=== PATIENT | female | born 1990 | race Caucasian/White ===

== ENCOUNTER 2023-08-08 17:02 | Emergency (ER) | payer OTHER, SELFPAY ==
[2023-08-08 17:06] VITALS: BP 153/112; BMI 29.5
--- NOTE | 2023-08-08 18:50 | ED.GENMED ---
History of Present Illness
General
Chief Complaint: Ear Problem
Source: patient and family
Exam Limitations: none
Time Seen by Provider: 08/08/23 18:19
Nursing documentation reviewed up to this point in time: agreed with
History of Present Illness
History of Present Illness:
32-year-old female presenting to the emergency department today with concerns of room spinning dizziness intermittently over the past few days but recently [place] and probably on the way home had nausea vomiting diarrhea for roughly 24 hours was
assessed at the [facility] fluids and felt better. Since then she has had some mild upper respiratory symptoms as well as right-sided ear she noticed room spinning dizziness yesterday as well as today intermittently with specific movements and
positioning. Seems to improve when sitting still. Has felt very fatigued. She had a negative COVID test 4 days ago. Denies any chest pain shortness of breath. Denies any numbness weakness or any additional strokelike symptoms
Review of Systems
Review of Systems
Allergies reviewed?: Yes
All Other Systems: ROS reviewed and negative except as documented in HPI and ROS
Phy Exam
Physical Exam
Physical Exam:
GENERAL: Alert , in no apparent distress
EYE: With extraocular movements patient had horizontal nystagmus that was fatigable. Pupils equal and reactive
NECK: Supple, no significant adenopathy.
ENT: o/p clr, mmm.
CARDIAC: Regular rate and rhythm .
LUNGS: Clear breath sounds bilaterally, no acute respiratory distress, no wheezes/rales/rhonchi
ABDOMEN: Soft, without focal tenderness, no r/g, no cvat
NEUROLOGICAL: Alert and oriented, no focal neuro deficits
SKIN: Warm and dry, skin intact.
MUSCULOSKELETAL: No edema, well perfused.
PSYCH: Normal and appropriate interaction.
Course
Orders/Labs/Results
Orders:
Orders
08/08/23 18:34
Urinalysis Reflex To Culture Urgent
Dexamethasone Sod Phosphate [Decadron] 10 mg IV NOW STA
Meclizine [Antivert] 25 mg PO NOW STA
Ondansetron Injectable [Zofran] 4 mg IV NOW STA
08/08/23 18:35
Electrocardiogram (*1) Stat
Reason for Study: Abdominal Pain
EKG- Treatment ONCE
0.9% Sodium Chloride 1000 ml [Nss] 1,000 ml IV BOLUS
08/08/23 19:20
COVID-19 Antigen Urgent
Source: Nasal Swab
Complete Blood Count/With Diff Urgent
Comprehensive Metabolic Panel Urgent
Abnormal Lab Results
08/08/23
19:20
Abs Immat Gran (auto) 0.1 H 10^3/uL
(0-0.05)
Absolute Neuts (auto) 6.7 H 10^3/uL
(1.4-6.5)
Absolute Monos (auto) 0.7 H 10^3/uL
(0.1-0.6)
Immature Gran % 0.6 H %
(0-0.5)
AST 63 H U/L
(14-36)
ALT 148 H U/L
(0-35)
08/08/23 19:20
08/08/23 19:20
Vital Signs
Initial and Last Documented VS:
Initial Vital Signs
Temp Pulse Resp BP Pulse Ox
98.3 F 99 16 153/112 98
08/08/23 17:06 08/08/23 17:06 08/08/23 17:06 08/08/23 17:06 08/08/23 17:06
Last Documented Vital Signs
Temp Pulse Resp BP Pulse Ox
98.3 F 89 16 122/93 97
08/08/23 17:06 08/08/23 19:22 08/08/23 17:06 08/08/23 19:22 08/08/23 19:22
MDM/Problems Addressed
MDM/Problems Addressed:
32-year-old female presenting to the emergency department today with concerns of room spinning dizziness generalized weakness fatigue over the past 4 days or so. Recently came back from a vacation in [facility]. Upon arrival here heart rate mildly
elevated in the high 90s blood pressure elevated as well patient in no obvious distress but does have horizontal nystagmus with extraocular movements and head movement. This is fatigable quickly. Has been able to ambulate. Unlikely be central
cause considering fatigable. No risk factors for CVA. Patient was given meclizine Zofran and steroid with improving symptoms. She was able to stand up and walk. Generally well here does not appear to be consistent with any life-threatening
etiology. Plan for outpatient management and close follow-up with ENT as needed. Additionally she did have elevated AST and ALT. She was notified of this and will follow-up as an outpatient for repeat of labs.
*Critical Care Note
Total Time (30-74mins, 75-104mins- exclusive of procedures): Not Applicable
ED Attending Note
-
Portions of this chart may have been created with voice recognition software.� Occasional wrong word or��sound alike� substitutions may have occurred due to the inherent limitations of voice recognition software.
Discharge Plan
Departure
Patient Disposition: Home (Routine Discharge)
Date of Disposition: 08/08/23
Time of Disposition: 20:23
Patient with high blood pressure during this ER visit?: No
Condition: Good
Covid-19: Not Applicable
Discharge Problem:
Vertigo, Acute viral syndrome, Transaminitis
Instructions: Vertigo ED
Prescriptions:
New
prednisone 20 mg tablet
40 mg PO DAILY 3 Days Qty: 6 0RF
meclizine 25 mg tablet
25 mg PO Q8 PRN (Reason: dizziness) Qty: 10 0RF
ondansetron 4 mg tablet,disintegrating
4 mg PO Q8H PRN (Reason: nausea and vomiting) Qty: 10 0RF
Referrals:
Luis Fernando Dwyer MD [Active] - Follow up in 5-7 days
Goran,Ligia J., MD [Active] - Follow up in 5-7 days
Stand Alone Forms: Return to Work
Activity Restrictions/Additional Instructions:
You came to the emergency department today with concerns of multiple symptoms including vertigo nausea. Here your reassuring assessment you did have slight elevation of your liver function test which will need to be repeated. Otherwise you do have
symptoms consistent with vertigo. Please take meclizine 1 tab every 8 hours as needed for symptoms. Can also take Zofran to help with nausea. Please also take steroids to help with inflammation. Return to the emergency department for any
worsening, new or concerning symptoms. Please otherwise follow-up closely with ENT for further assessment.
Interventions
Interventions:
*Risk Screen - Suicide Last Done: 08/08/23 17:06
*General Assessment Last Done: 08/08/23 19:23
*Neglect/Abuse Screening Last Done: 08/08/23 17:06
*ED COVID-19 Vaccine History Last Done: 08/08/23 19:23
Discharge Date and Time
Print Language: NIGERIEN
[2023-08-08] MEDS: NSS 1000 IV (19:11)
[2023-08-08] MEDS: ZOFRAN 4 MG IV (19:13)
[2023-08-08] MEDS: ANTIVERT 25 MG PO (19:14)
[2023-08-08] MEDS: DECADRON 10 MG IV (19:14)
[2023-08-08 19:22] VITALS: BP 122/93
[2023-08-08 19:33] LABS: % Basophils 0.6 % (0-2); % Eosinophils 1.9 % (0-6); % Immature Granulocytes 0.6 % (0-0.5); % Lymphocytes 20.8 % (20.5-51.1); % Monocytes 7.4 % (1.7-9.3); % Neutrophils 68.7 % (42.2-75.2); Absolute Basophils 0.1 10^3/uL (0-0.2); Absolute Eosinophils 0.2 10^3/uL (0-0.7); Absolute Immature Granulocytes 0.1 10^3/uL (0-0.05); Absolute Monocytes 0.7 10^3/uL (0.1-0.6); Absolute Neutrophils 6.7 10^3/uL (1.4-6.5); Hematocrit 41.2 % (37.0-47.0); Hemoglobin 14.5 g/dL (12.0-16.0); Mean Corp Hgb Conc. 35.2 g/dL (33.0-37.0); Mean Corpuscular Hgb 30.2 pg (27.0-31.0); Mean Corpuscular Volume 85.8 fL (81.0-99.0); Mean Platelet Volume 9.2 fL (7.4-10.4); Nucleated Red Blood Cells % 0 %; Platelet Count 282 10^3/uL (130-400); Red Cell Dist. Width 12.8 % (11.5-14.5); White Blood Cell Count 9.8 10^3/uL (4.8-10.8)
[2023-08-08 19:45] LABS: COVID-19 Antigen Negative (Negative)
[2023-08-08 19:53] LABS: ALT (SGPT) 148 U/L (0-35); AST (SGOT) 63 U/L (14-36); Albumin 4.6 g/dl (3.5-5.0); Alkaline Phosphatase 71 U/L (38-126); Blood Urea Nitrogen 12 mg/dl (7-17); Calcium 9.6 mg/dl (8.4-10.2); Carbon Dioxide 24 mmol/L (22-30); Estimated Creatinine Clearance > 125 ml/min; Glucose 98 mg/dl (70-99); Total Bilirubin 0.4 mg/dl (0.2-1.3); Total Protein 7.5 g/dl (6.3-8.2); eGFR > 60.00
[2023-08-08 20:16] LABS: Chloride 102 mmol/L (98-107); Potassium 4.1 mmol/L (3.5-5.1); Sodium 136 mmol/L (135-145)
[2023-08-08] MEDS: TYLENOL 650 MG PO (20:39)
[2023-08-08 20:48] VITALS: BP 131/82
== END 2023-08-08 20:59 | disposition home or self-care (01) ==
LOC: EMR 17:02
PROVIDERS: Physician Assistant; EMERGENCY PHYSICIAN Emergency Medicine; FAMILY PHYSICIAN Family Medicine
DX: R42 Dizziness and giddiness (principal); B34.9 Viral infection, unspecified; R74.01 Elevation of levels of liver transaminase levels
CPT/HCPCS: 99284; 96374; 96375; 96361; 80053; 85025; 87811; 93005